=== PATIENT | female | born 1955 | race Caucasian/White ===

== ENCOUNTER → 2022-03-19 | Outpatient (CLI) | payer SELFPAY ==
--- NOTE | 2022-03-19 10:32 | BI_ITS ---
MAMMOGRAPHY - BILATERAL SCREENING REASON FOR EXAM: Female, 66 years old. Routine annual screening examination. PERTINENT HISTORY: Sister with breast cancer. History of right excisional breast biopsy. TECHNIQUE: Digital bilateral breast edilson (3D mammographic acquisition) in the CC and MLO projections. 2-D mediolateral oblique (MLO) and craniocaudad (CC) views of both breasts were obtained. CAD: Full Field Digital Mammography with Computer Added Detection was performed. COMPARISON: Comparison is made with prior outside examination dated 01/20/2018. FINDINGS: Breast Composition: The breasts are heterogeneously dense, which may obscure small masses. There is a 1.8 cm x 1.7 cm well-defined nodular density in the axillary region of the right breast. This is adjacent to the site of prior excisional breast biopsy with area of architectural distortion. Correlation with ultrasound is recommended. No other significant abnormalities are identified. BI/SCRN MAMM (CAD)W/EDILSON BILAT IMPRESSION: 1.8 cm x 1.7 cm well-defined nodular density axillary region of the right breast at the site of prior excisional breast biopsy. Correlation with ultrasound is recommended for further evaluation. ASSESSMENT CATEGORY: BIRADS Category 0: Incomplete. Need additional imaging evaluation. A letter regarding these results will be sent to the patient by the facility within 30 days. Approximately 10% of breast cancers are not detected by mammography. A normal mammogram should not delay biopsy of a clinically suspicious abnormality. [id number] Electronically Signed: Mauricio Santana MD at 11:30 EST ,
--- NOTE | 2022-03-19 11:05 | US_ITS ---
STUDY: ULTRASOUND BREAST - RIGHT REASON FOR EXAM: Female, 66 years old. Abnormal screening mammogram. TECHNIQUE: Axial and longitudinal images of the RIGHT breast were performed with a high resolution ultrasound transducer. # OF IMAGES: 55 COMPARISON: Comparison is made with prior mammogram done earlier today. FINDINGS: RIGHT Breast: The mammographic abnormality corresponds to a 2.1 cm x 1.17 x 0.6 cm isoechoic nodular density at the 10 o''clock position of the breast 5 cm from nipple. This is adjacent to the biopsy site. Biopsy is recommended. US/Breast Limited Unilateral IMPRESSION: The mammographic abnormality corresponds to a 2.1 cm x 1.1 cm x 0.6 cm well-defined isoechoic solid nodule at the 10 o''clock position breast 5 cm from nipple. Tissue diagnosis is recommended. ASSESSMENT CATEGORY: BIRADS Category 4: Suspicious - Biopsy Should Be Considered. A letter regarding these results will be sent to the patient by the facility within 30 days. Electronically Signed: Mauricio Santana MD at 12:36 EST ,
== END | disposition home or self-care (01) ==
PROVIDERS: PCP Family Medicine; Referring Provider Registered Nurse; Visit Provider Registered Nurse
DX: Z12.31 Encounter for screening mammogram for malignant neoplasm of breast (principal); Z80.3 Family history of malignant neoplasm of breast; R92.8 Other abnormal and inconclusive findings on diagnostic imaging of breast
CPT/HCPCS: 76642; 77063; 77067

== ENCOUNTER 2022-03-27 16:49 | Outpatient (CLI) | payer BC, SELFPAY ==
--- NOTE | 2022-03-27 13:30 | BRBX_PTH ---
PATIENT: TORRI VILLANUEVA [facility] U#:[id number] AGE/SX: 66/F ROOM: RE03/27/[address]: Dr. Ira Lance MD : [id number] BED: DIS: 03/27/2022 SPEC #: [id number] RECD: 03/27/22 16:43 STATUS: JESUS REQ #: [id number] AVA: 03/27/22 13:[address]: Ira Lance DEPT: SURGICAL PATHOLOGY RECD BY: Renu Samson ENTERED: 03/28/22 07:57 SP TYPE: BREAST BX OTHR DR: Dr. Campbell Max MD Tissues: Right breast, NOS Procedures: Surgery Specimen Level IV HEADER OPERATION: Right breast biopsy PRE-OP DIAGNOSIS: Right breast mass TISSUE SUBMITTED: Right breast mass MICROSCOPIC DIAGNOSIS Right breast mass, biopsy: Fragments of benign breast tissue with dense fibrosis, suggestive of hyalinized fibroadenoma. Negative for atypia or malignancy. /SJ 11/18/22 COMMENT Correlation with clinical, radiologic findings and appropriate follow up are necessary. MICROSCOPIC DESCRIPTION Slides are reviewed. GROSS DESCRIPTION Received in formalin is one container labeled with the patient name and designated right breast. The specimen consists of multiple irregular and elongated fragments of cameron-yellow fibroadipose tissue measuring in aggregate 1.5 x 0.5 x 0.1cm. The specimen is totally submitted in one cassette. / ARTHUR:shira 03/28/2022 TC:5 CPT:62315
== END 2022-03-27 23:59 | disposition home or self-care (01) ==
LOC: LABSPEC 16:51
PROVIDERS: PCP Family Medicine; Visit Provider Surgery
DX: N63.10 Unspecified lump in the right breast, unspecified quadrant (principal)
CPT/HCPCS: 88305

== ENCOUNTER → 2023-03-26 | Outpatient (CLI) | payer BC, SELFPAY ==
--- NOTE | 2023-03-26 12:15 | BI_ITS ---
MAMMOGRAPHY - BILATERAL SCREENING REASON FOR EXAM: Female, 67 years old. Routine annual screening examination. PERTINENT HISTORY: Sister with breast cancer. Prior right ultrasound-guided breast biopsy. TECHNIQUE: Digital bilateral breast edilson (3D mammographic acquisition) in the CC and MLO projections. 2-D mediolateral oblique (MLO) and craniocaudad (CC) views of both breasts were obtained. CAD: Full Field Digital Mammography with Computer Added Detection was performed. COMPARISON: Comparison is made with prior study dated March 19, 2022. FINDINGS: Breast Composition: The breasts are heterogeneously dense, which may obscure small masses. There are no dominant masses or suspicious calcifications. A tissue clip marker from prior ultrasound-guided breast biopsy is seen within a 1.6 cm x 1.8 cm nodule in the axillary region of the right breast. No other significant abnormalities are identified. There has been no significant change since the prior study. BI/SCRN MAMM (CAD)W/EDILSON BILAT IMPRESSION: Stable bilateral screening mammogram. Yearly follow-up mammogram recommended. (A) ASSESSMENT CATEGORY: BIRADS Category 2: Benign. A letter regarding these results will be sent to the patient by the facility within 30 days. Approximately 10% of breast cancers are not detected by mammography. A normal mammogram should not delay biopsy of a clinically suspicious abnormality. [id number] Electronically Signed: Mauricio Santana MD at 13:15 EST ,
== END | disposition home or self-care (01) ==
LOC: OPBI 12:14
PROVIDERS: PCP Family Medicine; Referring Provider Surgery; Visit Provider Surgery
DX: Z12.31 Encounter for screening mammogram for malignant neoplasm of breast (principal); Z80.3 Family history of malignant neoplasm of breast
CPT/HCPCS: 77063; 77067

== ENCOUNTER → 2024-07-16 | Outpatient (CLI) | payer BC, SELFPAY ==
[2024-07-16 11:20] LABS: CRP 8.05 mg/L (0.0-3.0)
[2024-07-16 11:32] LABS: Erythrocyte Sedimentation Rate 26 mm/hr (0-30)
[2024-07-20 09:08] LABS: Endomysial Antibody IgA Negative (Negative); Immunoglobulin A 395 mg/dL (64-422); t-Transglutaminase IgA <2 U/mL (0-3)
[2024-07-24 21:12] LABS: Beef <0.10 kU/L (Class 0); Chocolate <0.10 kU/L (Class 0); Codfish <0.10 kU/L (Class 0); Corn <0.10 kU/L (Class 0); Egg, Whole <0.10 kU/L (Class 0); Milk (Cow) <0.10 kU/L (Class 0); Mussels <0.10 kU/L (Class 0); Peanut <0.10 kU/L (Class 0); Pork <0.10 kU/L (Class 0); Salmon <0.10 kU/L (Class 0); Shrimp <0.10 kU/L (Class 0); Soybean <0.10 kU/L (Class 0); Tuna <0.10 kU/L (Class 0); Wheat <0.10 kU/L (Class 0)
== END | disposition home or self-care (01) ==
LOC: LAB 10:08
PROVIDERS: PCP Family Medicine; Referring Provider Student in an Organized Health Care Education/Training Program; Visit Provider Student in an Organized Health Care Education/Training Program
DX: R14.0 Abdominal distension (gaseous) (principal)
CPT/HCPCS: 36415; 82784; 83516; 85652; 86003; 86005; 86140; 86255

== ENCOUNTER → 2024-11-24 | Outpatient (CLI) | payer BC, SELFPAY ==
--- NOTE | 2024-11-24 09:52 | BI_ITS ---
EXAM: SCRN MAMM (CAD)W/EDILSON BILAT DATE: 11/24/2024 CLINICAL HISTORY: F, Age 69 y/o , SCREENING TECHNIQUE: SCRN MAMM (CAD)W/EDILSON BILAT COMPARISON: Prior exam(s) dated 03/26/2023, 03/19/2022. FINDINGS: TISSUE DENSITY: The breasts are heterogeneously dense, which may obscure small masses. The mammogram demonstrates that the patient has dense breasts. Supplemental screening with whole breast ultrasound or MRI may be considered for further evaluation. Bilateral Breast Mammographic Findings: There is a mass with an associated biopsy marker clip in the upper-outer right breast, this is a biopsy-proven fibroadenoma. Otherwise, there are no suspicious masses, grouped calcifications or architectural distortions in either breast. BI/SCRN MAMM (CAD)W/EDILSON BILAT IMPRESSION: There is no mammographic evidence of malignancy. OVERALL FINAL ASSESSMENT BI-RADS 2: BENIGN RECOMMENDATION: Routine annual follow-up in 1 Year A letter with findings and recommendations will be mailed to the patient. Reading Location: [id number]
--- NOTE | 2024-11-24 09:52 | BI_ITS ---
EXAM: SCRN MAMM (CAD)W/EDILSON BILAT DATE: 11/24/2024 CLINICAL HISTORY: F, Age 69 y/o , SCREENING TECHNIQUE: SCRN MAMM (CAD)W/EDILSON BILAT COMPARISON: Prior exam(s) dated 03/26/2023, 03/19/2022. FINDINGS: TISSUE DENSITY: The breasts are heterogeneously dense, which may obscure small masses. The mammogram demonstrates that the patient has dense breasts. Supplemental screening with whole breast ultrasound or MRI may be considered for further evaluation. Bilateral Breast Mammographic Findings: There is a mass with an associated biopsy marker clip in the upper-outer right breast, this is a biopsy-proven fibroadenoma. Otherwise, there are no suspicious masses, grouped calcifications or architectural distortions in either breast. BI/SCRN MAMM (CAD)W/EDILSON BILAT IMPRESSION: There is no mammographic evidence of malignancy. OVERALL FINAL ASSESSMENT BI-RADS 2: BENIGN RECOMMENDATION: Routine annual follow-up in 1 Year A letter with findings and recommendations will be mailed to the patient. Reading Location: [id number]
== END | disposition home or self-care (01) ==
LOC: OPBI 09:50
PROVIDERS: PCP Family Medicine; Referring Provider Family Medicine; Visit Provider Family Medicine
DX: Z12.31 Encounter for screening mammogram for malignant neoplasm of breast (principal)
CPT/HCPCS: 77063; 77067